=== PATIENT | male | born 1985 | race Caucasian/White ===

== ENCOUNTER 2016-09-23 19:15 | Emergency (ER) | payer SELFPAY ==
--- NOTE | 2016-09-24 01:42 | ER ---
ADMIT: 09/23/2016 RM/LOC: ER [facility] MR#: [id number] [address] CINDY BIRD [address] [place] [address] Emergency Room Report SEX: M AGE: 31 : 1985 DATE: 09/23/2016 The patient is a 31-year-old male with asthma, atopic dermatitis, nasal polyps, and nonsteroidal anaphylaxis presents with exacerbation of asthma in the past 2 weeks. Ran out of his nebulizer medicine. Does not smoke. Exam remarkable for nontoxic, afebrile male with O2 sats 95% on room air, audible wheezes, diminished breath sounds. Chest x-ray shows air trapping, otherwise negative. The patient given 3 DuoNebs and continuous albuterol 15 mg with improvement; Solu-Medrol 125 mg IV push; magnesium 2 g IV piggyback; home with prednisone 60 mg q.a.m. x5 days, start tomorrow; doxycycline 100 mg b.i.d. x7 days, start tomorrow. Refill DuoNeb premixed q.i.d. p.r.n. nebulizer, albuterol MDI q.i.d. p.r.n., and Asmanex Twisthaler 4 puffs b.i.d. refill p.r.n. Follow up with [facility] as needed. Gil Hyde MD/ rita JOB #: [id number] CC: Gil Hyde MD, Attending Physician Hellen Trammell APRN-LITIGATION PARTNER, Family Physician . [facility]
== END 2016-09-23 21:20 | disposition home or self-care (01) ==
LOC: ER 19:15
DX: J45.909 Unspecified asthma, uncomplicated (principal); Z79.899 Other long term (current) drug therapy

== ENCOUNTER 2016-10-26 18:26 | Emergency (ER) | payer SELFPAY ==
--- NOTE | 2016-11-14 16:40 | ER ---
ADMIT: 10/26/2016 RM/LOC: ER [facility] MR#: [id number] [address] CINDY BIRD [address] [place] [address] Emergency Room Report SEX: M AGE: 31 : 1985 DATE: 10/26/2016 ADDENDUM: This patient comes to the ER because he is having an asthma attack. He ran out of his medications and his asthma has been acting up for the last week. He denies any fevers. On physical exam, he does have quite a bit of wheezes, but he is not having respiratory distress. He was given DuoNeb treatment and Decadron in the ER with peak flows that improved after the albuterol. I wrote a prescription for prednisone and albuterol and he is to follow up with Dr. Leon as needed. Please see my T-sheet. JAMIE Frederick / Sadiq Beach MD / rita JOB #: [id number] CC: Sadiq Beach MD, Attending Physician Hellen Trammell, [employer]UST[employer] OPERATOR-SUPER[employer]OR [employer], Family Physician
== END 2016-10-26 20:45 | disposition home or self-care (01) ==
LOC: ER 18:26
DX: J45.901 Unspecified asthma with (acute) exacerbation (principal); Z79.899 Other long term (current) drug therapy; Z88.8 Allergy status to other drugs, medicaments and biological substances

== ENCOUNTER 2016-12-05 23:18 | Emergency (ER) | payer SELFPAY ==
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
== END 2016-12-06 00:54 | disposition home or self-care (01) ==
LOC: ER 23:18
DX: J44.1 Chronic obstructive pulmonary disease with (acute) exacerbation (principal); J33.9 Nasal polyp, unspecified; J30.9 Allergic rhinitis, unspecified; Z79.899 Other long term (current) drug therapy; Z88.6 Allergy status to analgesic agent

== ENCOUNTER 2017-01-08 15:42 | Emergency (ER) | payer SELFPAY ==
--- NOTE | 2017-01-12 16:46 | ER ---
ADMIT: 01/08/2017 RM/LOC: ER [facility] MR#: [id number] [address] CINDY BIRD [address] [place] [address] Emergency Room Report SEX: M AGE: 31 : 1985 DATE: 01/08/2017 HISTORY OF PRESENT ILLNESS: The patient is a 31-year-old male, presents to the emergency room with shortness of breath. He says for 2 days now, he has been having some wheezing. He has used his rescue inhaler, but does not have the inhaler that supposed to use regularly daily like Breo or ipratropium. So, his shortness of breath is what brought him into the emergency room. He did have a breathing treatment of albuterol or Ventolin about an hour prior to coming to the emergency room. PAST MEDICAL HISTORY: Asthma and nasal polyps. MEDICATIONS: He takes albuterol and ipratropium. ALLERGIES: HE IS ALLERGIC TO NSAIDS. PHYSICAL EXAMINATION: VITAL SIGNS: Blood pressure 136/74, heart rate 73, respirations 16, temp is 97.7, and O2 sats 94%. GENERAL: Mildly anxious. HEENT: Normal inspection. NECK: Supple. RESPIRATIONS: Some wheezes throughout in the upper lungs. ABDOMEN: Soft and nontender. EXTREMITIES: Well perfused. CLINICAL IMPRESSION: Asthma exacerbation. Given Decadron and ipratropium. Discharged with prednisone and instructions to follow up with primary provider. His lungs do sound much better, but still having wheezes throughout. JAMIE Loza / Maximiliano Rm MD / modl JOB #: [id number] CC: Maximiliano Rm MD, Attending Physician Papo Johnson MD, Family Physician
== END 2017-01-08 17:10 | disposition home or self-care (01) ==
LOC: ER 15:42
DX: J45.901 Unspecified asthma with (acute) exacerbation (principal); Z88.8 Allergy status to other drugs, medicaments and biological substances; Z79.899 Other long term (current) drug therapy